=== PATIENT | male | born 1955 | race Caucasian/White ===

== ENCOUNTER 2017-08-28 16:41 | Emergency (ER) | payer OTHER ==
[2017-08-28] MEDS ORDERED: Lidocaine 2% EPI 1:200000 MPF* 20 ML VIAL ONE (17:09)
[2017-08-28] MEDS ORDERED: PROCHLORPERAZINE INJ 5 MG/ML 2 ML VIAL ONE (17:11)
[2017-08-28] MEDS ORDERED: HYDROmorphone INJ* 1 MG/ML CARPUJECT SYRINGE ONE (17:11)
[2017-08-28] MEDS ORDERED: HYDROmorphone INJ* 2 MG/ML CARPUJECT SYRINGE IV SLOW PU ONE (17:13)
[2017-08-28] MEDS ORDERED: PROCHLORPERAZINE INJ 5 MG/ML 2 ML VIAL IV ONE (17:16)
[2017-08-28] MEDS ORDERED: HYDROmorphone INJ* 1 MG/ML CARPUJECT SYRINGE IV SLOW PU ONE (17:17)
[2017-08-28] MEDS ORDERED: Tetan/Diph/Pertus SYR(Tdap)* 0.5 ML SYR(BOOSTRIX) use SYR IM ONE (17:22)
--- NOTE | 2017-08-28 18:05 | RAD ---
INDICATION: Intracranial Injury COMPARISON: None TECHNIQUE: Noncontrast axial source images were acquired from the skull base to the vertex. FINDINGS: Ventricles/sulci: The ventricles and cisterns are normal in size and configuration for age. Brain parenchyma: There is patchy areas of decreased attenuation in the periventricular and subcortical white matter consistent with chronic microvascular ischemia. There is no intracranial mass or mass effect. Intracranial hemorrhage:None. Extra-axial spaces: There are no abnormal extra axial fluid collections or evidence of extra-axial mass. Calvarium: There is no calvarial fracture or other calvarial abnormality. Scalp: There is no evidence of scalp or extracalvarial soft tissue abnormality. Paranasal sinuses/mastoid: The paranasal sinuses and mastoid air cells are clear. Other: None. IMPRESSION: CHRONIC MICROVASCULAR ISCHEMIC CHANGES. NO ACUTE FINDINGS.
--- NOTE | 2017-08-28 18:09 | RAD ---
INDICATION: Fall. Neck pain COMPARISON: None TECHNIQUE: Noncontrast axial source images was performed from the skull base to the thoracic inlet. Coronal and and sagittal reformatted images were generated. FINDINGS: Vertebrae: There is no fracture or acute focal bony lesion. There are postsurgical changes with anterior and posterior spinal fusion at C4-C6. There is no evidence of hardware failure. There is posterior spondylitic change with resultant decrease in AP diameter at the fused levels. This is most significant at C6 There is multilevel facet arthropathy most prominent above and below levels of fusion Alignment: The craniocervical junction appears normal. The cervical vertebrae are normally aligned. Central Canal: Decrease in AP diameter canal is noted above. Intervertebral disc spaces: The disc spaces are maintained. Brain: The visualized brain appears unremarkable. Soft tissues: The visualized soft tissue elements of the neck are unremarkable. The prevertebral soft tissues appear normal. The lung apices are clear. IMPRESSION: MULTILEVEL OSTEOARTHRITIC CHANGE. CERVICAL FUSION C4-C6. DECREASED AP DIAMETER OF THE CANAL AT THE FUSED LEVELS
--- NOTE | 2017-08-28 18:40 | ED ---
Marta Ward Gabriel, scribed for Devora Garrison MD on 08/28/17 at 1713 . Adult Trauma - HPI Summary HPI Summary: This patient is a 61 year old M BIBA from the residential to [facility] accompanied by correction officers s/p fall. Pt states he was coming out of the cell and the left leg gave out casing him to fall. He hit the back of his head. The patient rates the pain 10/10 in severity. Patient reports a laceration on the back of the head. Patient denies LOC and neck pain. Pt is on Plavix. - History of Current Complaint Chief Complaint: EDHeadInjury Stated Complaint: HEAD INJURY Time Seen by Provider: 08/28/17 17:04 Hx Obtained From: Patient Mechanism of Injury: Fall Ambulatory at the Scene: Yes Loss of Consciousness: no loss of consciousness Onset of Pain: Immediate Onset Severity: Severe Current Severity: Severe Pain Intensity: 10 Pain Scale Used: 0-10 Numeric Location: Head Associated Signs & Symptoms: Positive: Negative - loc and neck pain - Allergy/Home Medications Allergies/Adverse Reactions: Allergies Allergy/AdvReac Type Severity Reaction Status Date / Time No Known Allergies Allergy Verified 08/28/17 17:12 PMH/Surg Hx/FS Hx/Imm Hx Endocrine/Hematology History: Reports: Other Endocrine/Hematological Disorders - raynaud's disease Respiratory History: Denies: Hx Asthma, Hx Chronic Obstructive Pulmonary Disease (COPD) GI History: Denies: Hx Crohn's Disease, Hx Gall Bladder Disease History: Denies: Hx Acute Renal Failure, Hx Benign Prostatic Hyperplasia Infectious Disease History: No Infectious Disease History: Denies: Traveled Outside the [place] in Last 30 Days - Family History Known Family History: Negative: Respiratory Disease, Seizure Disorder - Social History Occupation: Unemployed Lives: [facility] - residential Alcohol Use: None Substance Use Type: Reports: None Smoking Status (MU): Never Smoked Tobacco Review of Systems Positive: Other - laceration on scalp Neurological: Negative - LOC All Other Systems Reviewed And Are Negative: Yes Physical Exam - Summary Physical Exam Summary: VITAL SIGNS: Reviewed. GENERAL: Patient is a well-developed and nourished male who is lying comfortable in the stretcher. Patient is not in any acute respiratory distress. HEAD AND FACE: there is a 4in laceration to the back of the head. EYES: PERRLA, EOMI x 2, No injected conjunctiva, no nystagmus. EARS: Hearing grossly intact. Ear canals and tympanic membranes are within normal limits. MOUTH: Oropharynx within normal limits. NECK: Supple, trachea is midline, no adenopathy, no JVD, no carotid bruit, no c- spine tenderness, neck with full ROM. CHEST: Symmetric, no tenderness at palpation LUNGS: Clear to auscultation bilaterally. No wheezing or crackles. CVS: Regular rate and rhythm, S1 and S2 present, no murmurs or gallops appreciated. ABDOMEN: Soft, non-tender. No signs of distention. No rebound no guarding, and no masses palpated. Bowel sounds are normal. EXTREMITIES: FROM in all major joints, no edema, no cyanosis or clubbing. NEURO: Alert and oriented x 3. No acute neurological deficits. Speech is normal and follows commands. SKIN: Dry and warm Triage Information Reviewed: Yes Vital Signs On Initial Exam: Initial Vitals Temp Pulse Resp BP Pulse Ox 97.9 F 62 16 130/97 99 08/28/17 16:50 08/28/17 16:50 08/28/17 16:50 08/28/17 16:50 08/28/17 16:50 Vital Signs Reviewed: Yes Procedures - Laceration/Wound Repair 1 Location: head Description: Irregular Anesthesia: 2.0%, Lido, Epi Length, Depth and Shape: 4 inches left vertix Irrigated w/ Saline (ccs): 500 Laceration/Wound Explored: clean, no foreign body removed Closure: [place] #__ - 25 Diagnostics - Vital Signs Vital Signs Temp Pulse Resp BP Pulse Ox 08/28/17 16:50 97.9 F 62 16 130/97 99 - Laboratory Lab Statement: Any lab studies that have been ordered have been reviewed, and results considered in the medical decision making process. - CT CT C-spine CT Interpretation Completed By: Radiologist - MULTILEVEL OSTEOARTHRITIC CHANGE. CERVICAL FUSION C4-C6. DECREASED AP DIAMETER OF THE CANAL AT THE FUSED LEVELS ED physician has reviewed this radiology report. CT brain CT Interpretation Completed By: Radiologist - CHRONIC MICROVASCULAR ISCHEMIC CHANGES. NO ACUTE FINDINGS. ED physician has reviewed this radiology report. Adult Trauma Course/Dx - Course Assessment/Plan: This patient is a 61 year old M BIBA from the residential to [facility] accompanied by correction officers s/p fall. Pt states he was coming out of the cell and the left leg gave out casing him to fall. He hit the back of his head. The patient rates the pain 10/10 in severity. Patient reports a laceration on the back of the head. Patient denies LOC and neck pain. Pt is on Plavix. CT C-spine reveals, per radiologist, MULTILEVEL OSTEOARTHRITIC CHANGE. CERVICAL FUSION C4-C6. DECREASED AP. DIAMETER OF THE CANAL AT THE FUSED LEVELS. CT brain reveals, per radiologist, CHRONIC MICROVASCULAR ISCHEMIC CHANGES. NO ACUTE FINDINGS. In the ED course the patient was given dilaudid, lidocaine, Compazine, and a tetanus booster. The patients laceration was repaired with no compliccations. Dx head injury and scalp laceration. Patient will be discharged and have his cindi removed in two weeks. The patient is agreeable with this plan. - Diagnoses Provider Diagnoses: Laceration of head, Scalp laceration Discharge - Discharge Plan Condition: Stable Disposition: HOME Patient Education Materials: Laceration (ED), Head Injury (ED) Referrals: [facility], [Primary Care Provider] - 2 Weeks Additional Instructions: Remove the cindi in two weeks. RETURN TO EMERGENCY DEPARTMENT FOR ANY NEW OR WORSENING SYMPTOMS The documentation as recorded by the Marta laery Gabriel accurately reflects the service I personally performed and the decisions made by me, Devora Garrison MD.
[2017-08-28 18:43] VITALS: BP 125/69
== END 2017-08-28 18:42 | disposition home or self-care (01) ==
LOC: ED 16:41
DX: S01.01XA Laceration without foreign body of scalp, initial encounter (principal); S01.91XA Laceration without foreign body of unspecified part of head, initial encounter; W19.XXXA Unspecified fall, initial encounter; Y92.9 Unspecified place or not applicable
CPT/HCPCS: 12001; 70450; 72125; 90715; 96374; 96375; 99282; J0780; J1170

== ENCOUNTER 2017-09-02 15:51 | Observation (INO) | payer OTHER ==
[2017-09-02] MEDS ORDERED: NS 0.9% 1000 ML* 1,000 ML IV ONE (16:38)
--- NOTE | 2017-09-02 17:01 | RAD ---
INDICATION: Fell 5 days ago intracranial injury. COMPARISON: CT brain August 28, 2017 TECHNIQUE: Noncontrast axial source images were acquired from the skull base to the vertex. FINDINGS: The images are suboptimal presumably related to a technical issue. The scan should be repeated. The patient is been called back for additional imaging. The submitted images show no gross abnormalities. IMPRESSION: Limited exam due to technical issues. The examination will be repeated.
--- NOTE | 2017-09-02 17:07 | RAD ---
INDICATION: Fall. Unspecified injuries. COMPARISON: None TECHNIQUE: Noncontrast axial source images were obtained from the hemidiaphragms to the symphysis pubis. This examination was ordered using a renal stone protocol which is performed without oral or intravenous contrast and therefore has inherent limitations when used to evaluate other intra-abdominal or intrapelvic pathology. Consider conventional contrast enhanced imaging if clinically . CHEST FINDINGS: Neck/thyroid: The visualized neck to include the thyroid appear normal. Chest wall: There are no acute abnormalities of the bony thorax or chest wall. There is spondylitic change of the thoracic spine with kyphosis There is no supraclavicular, infraclavicular, or axillary lymphadenopathy. Lungs : There are no worrisome pulmonary parenchymal masses or infiltrates. There are several tiny cuspid granulomas. The lungs are hyperinflated. There are no endobronchial lesions. Cardiomediastinal structures: The heart is normal in size. There is no pericardial effusion. There is no evidence of aortic aneurysm or dissection. There is a dual-chamber cardiac pacemaker. There are aortic intimal calcifications. The pulmonary vessels appear normal. There is no mediastinal or hilar adenopathy. 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 The esophagus appears normal. Pleura : There are no pleural-based masses or effusions. ABDOMINAL/PELVIC FINDINGS: Liver: No CT abnormalities the liver on noncontrast evaluation. Gallbladder: There are no calcified gallstones. There is no evidence of wall thickening or pericholecystic fluid. Spleen: The splenic abnormalities on noncontrast evaluation. Pancreas: Limited evaluation of pancreas due to lack of oral and intravenous contrast. No specific abnormalities are identified. Adrenal glands: There is no evidence of adrenal mass. Kidneys: Tiny nonobstructive right renal calculus. No hydronephrosis. No mass identified on noncontrast evaluation. Adenopathy: There is no evidence of adenopathy by size criteria. Evaluation is limited without oral contrast Fluid collections: There are no free or localized fluid collections. Vessels:There are atherosclerotic changes of the aorta. There is no focal aneurysm. The IVC is unremarkable GI tract: No gross abnormalities the GI tract. There is moderate stool in the rectal vault. No obstruction. Lack of oral contrast limits evaluation.. Pelvic organs: The prostate and seminal vesicles appear normal Bladder: There are no bladder masses. Abdominal and pelvic soft tissues: The extraperitoneal abdominal and pelvic soft tissues appear normal.. Osseous structures: Spondylitic change of the lumbar spine. Mild bilateral hip osteoarthritis. No acute bony findings. IMPRESSION: LIMITED NONCONTRAST IMAGING SHOWS NO ACUTE CT FINDINGS
[2017-09-02 17:56] LABS: Hematocrit 20 % (42-52); Hemoglobin 6.8 g/dl (14.0-18.0)
[2017-09-02] MEDS ORDERED: Acetaminophen TAB* 325 MG PO PRN (18:49)
[2017-09-02] MEDS ORDERED: Ondansetron INJ* 2 MG/ML VIAL IV PRN (18:49)
[2017-09-02] MEDS ORDERED: Sildenafil (NF) 25 MG TAB PO PRN (18:50)
--- NOTE | 2017-09-02 19:01 | ED ---
Yuriy Ward Jennifer, scribed for Sergio Joiner MD on 09/02/17 at 1620 . Head Injury - HPI Summary HPI Summary: The pt is a 61 y/o male who presents to the ED with bleeding from the head. Pt was in the ED five days ago and received sutures to his head. Every morning for the past five mornings, he has woken up with his pillows soaked with blood. The pt has lost a lot of blood in the past five days. Pt is accompanied by two correctional officers. - History Of Current Complaint Stated Complaint: ANEMIA Time Seen by Provider: 09/02/17 16:11 Hx Obtained From: Patient Mechanism Of Injury: Other - Faulty sutures Onset/Duration: Started Days Ago - five Severity Currently: None Pain Scale Used: 0-10 Numeric Character: Other: - Bleeding from suture site Associated Signs And Symptoms: Other: - Anemia - Allergies/Home Medications Allergies/Adverse Reactions: Allergies Allergy/AdvReac Type Severity Reaction Status Date / Time No Known Allergies Allergy Verified 08/28/17 17:12 Home Medications: Home Medications Acetaminophen TAB* [Tylenol TAB*] 650 mg PO TID PRN 09/02/17 [History Confirmed 09/02/17] Amitriptyline TAB* [Elavil TAB*] 25 mg PO QPM 09/02/17 [History Confirmed ] Carvedilol TAB* [Coreg TAB*] 12.5 mg PO BID 09/02/17 [History Confirmed 09/02/17 ] Clopidogrel TAB* [Plavix TAB*] 75 mg PO DAILY 09/02/17 [History Confirmed ] Digoxin TAB* [Lanoxin TAB*] 0.125 mg PO DAILY 09/02/17 [History Confirmed ] Furosemide TAB* [Lasix TAB*] 20 mg PO DAILY 09/02/17 [History Confirmed 09/02/17 ] Levothyroxine TAB* [Synthroid TAB*] 88 mcg PO DAILY 09/02/17 [History Confirmed 09/02/17] Lisinopril TAB* [Prinivil TAB*] 10 mg PO DAILY 09/02/17 [History Confirmed 09/02] Minerin Cream* [Eucerin Cream*] 1 applic TOPICAL DAILY PRN 09/02/17 [History Confirmed 09/02/17] Pravastatin (NF) [Pravachol (NF)] 40 mg PO QPM 09/02/17 [History Confirmed 09/02] Ranitidine TAB (NF) [Zantac TAB (NF)] 300 mg PO BEDTIME 09/02/17 [History Confirmed 09/02/17] Sildenafil (NF) [Viagra (NF)] 20 mg PO TID PRN 09/02/17 [History Confirmed 09/02] Spironolactone TAB* [Aldactone TAB 25 MG*] 25 mg PO DAILY 09/02/17 [History Confirmed 09/02/17] PMH/Surg Hx/FS Hx/Imm Hx Endocrine/Hematology History: Reports: Hx Anemia, Other Endocrine/Hematological Disorders - raynaud's disease Respiratory History: Denies: Hx Asthma, Hx Chronic Obstructive Pulmonary Disease (COPD) GI History: Denies: Hx Crohn's Disease, Hx Gall Bladder Disease History: Denies: Hx Acute Renal Failure, Hx Benign Prostatic Hyperplasia Musculoskeletal History: Reports: Other Musculoskeletal History - Scleroderma, Raynaud's - Family History Known Family History: Negative: Respiratory Disease, Seizure Disorder - Social History Alcohol Use: None Substance Use Type: Reports: None Smoking Status (MU): Never Smoked Tobacco Review of Systems Negative: Chills Positive: Other - Bleeding from suture wound on head All Other Systems Reviewed And Are Negative: Yes Physical Exam - Summary Physical Exam Summary: Appearance: The patient is well-nourished in no acute distress and in no acute pain. Skin: The skin is warm and dry and skin color reflects adequate perfusion. HEENT: ~The head is normocephalic and atraumatic. The pupils are equal and reactive. The conjunctivae are pale and without drainage. ~Nares are patent and without drainage. ~Mouth reveals moist mucous membranes and the throat is without erythema and exudate. ~The external ears are intact. The ear canals are patent and without drainage. The tympanic membranes are intact. Neck: the neck is supple with full range of motion and non-tender. There are no carotid bruits. ~There is no neck vein distension. Respiratory: Chest is non-tender. ~Lungs are clear to auscultation and breath sounds are symmetrical and equal. Cardiovascular: Heart is regular rate and rhythm. ~There is no murmur or rub auscultated. ~~There is no peripheral edema and pulses are symmetrical and equal. Abdomen: The abdomen is soft and non-tender. ~There are normal bowel sounds heard in all four quadrants and there is no organomegaly palpated. Musculoskeletal: There is no back tenderness noted. ~Extremities are non-tender with full range of motion. ~There is good capillary refill. ~There is no peripheral edema or calf tenderness elicited. Neurological: Patient is alert and oriented to person, place and time. ~The patient has symmetrical motor strength in all four extremities. ~Cranial nerves are grossly intact. Deep tendon reflexes are symmetrical and equal in all four extremities. Psychiatric: The patient has an appropriate affect and does not exhibit any anxiety or depression. Triage Information Reviewed: Yes Vital Signs On Initial Exam: Initial Vitals Temp Pulse Resp BP Pulse Ox 97.7 F 59 20 109/54 97 09/02/17 16:16 09/02/17 16:16 09/02/17 16:16 09/02/17 16:16 09/02/17 16:16 Vital Signs Reviewed: Yes Diagnostics - Vital Signs Vital Signs Temp Pulse Resp BP Pulse Ox 09/02/17 16:16 97.7 F 59 20 109/54 97 - Laboratory Lab Results: Lab Results 09/02/17 09/02/17 Range/Units 17:40 17:40 Hgb 6.8 L (14.0-18.0) g/dl Hct 20 L (42-52) % Blood Type A Positive Antibody Screen Negative Crossmatch See Detail Result Diagrams: 09/02/17 17:40 Lab Statement: Any lab studies that have been ordered have been reviewed, and results considered in the medical decision making process. - CT Brain CT CT Interpretation: No Acute Changes - Limited exam due to technical issues. The examination will be repeated. Dr. Joiner has reviewed this report. CT Interpretation Completed By: Radiologist Chest/Abd/Pel CT CT Interpretation: No Acute Changes - LIMITED NONCONTRAST IMAGING SHOWS NO ACUTE CT FINDINGS. Dr. Joiner has reviewed this report. [address] Interpretation Completed By: Radiologist Head Injury Course/Dx Course Of Treatment: Mr. Lee returned to the ED with the unusual story that he has had continued bleeding from the scalp lac that was stapled here last Thursday. Now he is getting dizzy when he stands and was orthostatic at [place]. His blood was sent and he was found to have a new severe anemia. The hospitalist service was contacted for admission for transfusion and they requested some scans to look for another source of blood loss. - Diagnoses Provider Diagnoses: Severe anemia Discharge - Discharge Plan Condition: Good Disposition: ADMITTED TO [facility] Referrals: [place] [facility], [Primary Care Provider] - The documentation as recorded by the Yuriy leary Jennifer accurately reflects the service I personally performed and the decisions made by me, Sergio Joiner MD.
[2017-09-02] MEDS ORDERED: Famotidine TAB* 20 MG PO SCH (21:00)
--- NOTE | 2017-09-03 02:23 | HP ---
CC: [facility] * HISTORY AND PHYSICAL: DATE OF ADMISSION: 09/02/17 PRIMARY CARE PROVIDER: [facility]. MY ATTENDING WHILE IN THE HOSPITAL: Dr. Corby Cooper.* (DICTATED BY MISTY GORE) CHIEF COMPLAINT: Dizziness on standing for 6 days. HISTORY OF PRESENT ILLNESS: Mr. Lee is an inmate at [facility] with past medical history significant for MT, status post stenting x3, greater than 1 year ago with ischemic cardiomyopathy, ICD placement ; hypertension; hypothyroidism; scleroderma; multiple sclerosis, who presents with dizziness on standing for 6 days after he was seen at this facility on with a head laceration which patient claims is from slipping when he got out of his cell block. The patient states that he falls frequently due to weakness in his right leg from lumbar disk disease. The patient states that on the day after he was seen in the emergency department, his pillow was saturated with blood. They stopped all his blood thinners at that point including Trental and Plavix, but he continued to have significant bleeding from his head for several days, which significantly decreased in quantity on the day of examination, was no longer present, the patient states that he, since Thursday, , has been having. The patient denies palpitations, chest pain, or shortness of breath along with this. The patient's only other complaint is an increase in his Raynaud's phenomenon with his fingers being white for several days without ulceration or pain. The patient states, however, that his Raynaud' s is generally under control. The patient has, for a couple of days, had runny nose and sore throat without difficulty breathing, had never been on oxygen. The patient states that he has known history of anemia. The patient's scleroderma does not have known kidney or lung complications. The patient has ICD placed last September for sick sinus syndrome. The patient has not passed out. The patient is feeling better in the emergency department after getting 1 L of fluid. The patient had labs drawn earlier today at [facility] to evaluate his anemia, the only abnormalities from which were elevated haptoglobin and elevated homocysteine. The patient had a hemoglobin of 6.8 in the emergency department. He is symptomatic and has coronary artery disease, so we were asked to evaluate for admission. The patient has lost 21 pounds over the course of incarceration to this point due to poor lack of nutritional choices according to him. PAST MEDICAL HISTORY: Ischemic cardiomyopathy, unknown EF, ICD implantation; scleroderma; myocardial infarction; hypertension; stent x3; coronary artery disease; hypothyroidism; multiple sclerosis on MRI of head. PAST SURGICAL HISTORY: Cervical fusion surgery, ICD implantation. MEDICATIONS: On admission: 1. Carvedilol 12.5 mg b.i.d. 2. Tylenol 650 mg p.o. t.i.d. as needed. 3. Eucerin cream 1 application topical daily as needed. 4. Spironolactone 25 mg p.o. daily. 5. Amitriptyline 25 mg p.o. q.p.m. 6. Furosemide 20 mg p.o. daily. 7. Digoxin 0.125 mg p.o. daily. 8. Clopidogrel 75 mg p.o. daily. 9. Pravastatin 40 mg p.o. q.p.m. 10. Lisinopril 10 mg p.o. daily. 11. Levothyroxine 88 mcg p.o. daily. 12. Zantac 300 mg p.o. at bedtime. 13. Sildenafil 20 mg p.o. t.i.d. as needed for vasospasm. The patient was previously on Trental; however, this was held last Thursday as well as the carvedilol and the clopidogrel. FAMILY HISTORY: The patient's mother of MT at 78. The patient's father of acute blood loss anemia secondary to a fall post orthopedic surgery. The patient has a strong family history of coronary artery disease. SOCIAL HISTORY: The patient has never smoked, drank occasional alcohol before being incarcerated. Denies any illicit drug use. 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 The patient is and has no children. REVIEW OF SYSTEMS: A 14-point review of systems was reviewed and is negative except as above. PHYSICAL EXAMINATION GENERAL: The patient is a 61-year-old male, who appears stated age and sitting comfortably in the bed, no acute distress. The patient has visible dried blood on his hair on the left side of head. VITAL SIGNS: In the emergency department, temperature 97.7, pulse rate 59, respiratory rate 20, oxygen saturation 97% on room air, blood pressure 109/54. HEENT: Head: Normocephalic. There is approximately a 10-cm long laceration on the scalp with cindi with no signs of dehiscence. There is significant amount of dried blood on the patient's hair. No other trauma, ecchymosis, or signs of discharge or erythema. Sclerae anicteric. No conjunctival injection. Nasal mucosa moist. Oral mucosa moist. Mucosa pale. No pharyngeal erythema , discharge, or exudate. NECK: Supple, nontender. No lymphadenopathy. No carotid bruit auscultated. RESPIRATORY: Clear to auscultation bilaterally. No wheezes, rales, or rhonchi. Good air exchange bilaterally. CARDIAC: Bradycardic. No clicks, murmurs, gallops, or rubs. Pulses 2+ in bilateral dorsalis pedis, posterior tibialis, and radial areas. No lower extremity edema noted. Venous stasis changes present in legs bilaterally. ABDOMEN: Soft, nontender, nondistended. Bowel sounds present. Normoactive in all 4 quadrants. No hepatosplenomegaly. No abdominal bruit auscultated. NEURO: Cranial nerves II through XII intact. Alert and oriented x3. No focal deficits. PSYCHIATRIC: Pleasant and cooperative. SKIN: Clean, dry, and intact except for above-noted rashes. Nails are atrophic. Fingertips show classic signs of skin tightening. DIAGNOSTIC STUDIES/LAB DATA: Hemoglobin 6.8, hematocrit 20. Sodium 137, potassium 4.8, chloride 101, carbon dioxide 28, anion gap 7, BUN 21, creatinine 1.46, glucose 95, calcium 9.7. Iron 51, TIBC 322, percent saturation 16%, ferritin 197. Bilirubin 0.3, AST 18, ALT 11, alkaline phosphatase 64. Protein 6.8, albumin 3.9, globulin 2.9. Digoxin level 1.1. Abdomen and pelvis CT read as limited, noncontrast study shows no acute CT findings. Brain CT from 09/02/17 read as negative examination. Electrocardiogram read as: S1, S2 present. No other atrial paced complexes, no other abnormalities. Left bundle branch block pattern. QTc 419. ASSESSMENT AND PLAN: Impression: The patient is a 61-year-old male with past medical history significant for coronary artery disease with ischemic cardiomyopathy status post myocardial infarction and stenting x3, scleroderma and multiple sclerosis, who presents with acute blood loss anemia from a scalp wound. The patient had a rather significant anemic workup including ferritin, iron, folate, B12, reticulocyte count, and haptoglobin, who will be admitted for transfusion and continuation of his anemia workup. 1. Acute blood loss anemia: The patient has acute blood loss anemia. He has had a major trauma while on 2 antiplatelet agents. These were stopped and the patient's bleeding has stopped; however, he has significant anemia, we will transfuse the patient 2 units at this time, recheck CBC. We will obtain orthostatic vital signs, which were abnormal [facility] the jail. Due to the patient' s scleroderma, we will add on a Ct test. The patient does not appear to be hemolyzing, which is a concern with his scleroderma. The patient has an elevated reticulocyte count but not proportional to the degree of anemia, this may be due to the acute nature of anemia and the patient will have increased reticulocyte count appropriately later; however, the patient does have elevated creatinine at this time, which could be related to chronic kidney disease associated with his scleroderma, to which we have no baseline. We will check an erythropoietin level and the risks and benefits of transfusions were explained to the patient and he is in agreement to go forward with this. We will monitor the patient for fluid overload and repeat echo and perform echocardiogram as the patient's ejection fraction is unknown. 2. Ischemic cardiomyopathy: We will assess the patient's echocardiogram. We will continue the patient's pravastatin, hold Coreg due to orthostasis, hold clopidogrel. EKG read as above showing no signs of ischemia. The patient has no heart disease. 3. Hypertension: The patient is normotensive. Hold patient's antihypertensives including spironolactone, furosemide, lisinopril, and carvedilol. We will resume these as tolerated. 4. Chronic kidney disease: Unknown chronicity. The patient has elevated creatinine, this could represent chronic kidney disease due to anemia, chronic kidney disease due to hypertension, or chronic kidney disease related to scleroderma. There are no records to compare this to. We will reassess after transfusion. Erythropoietin level pending. 5. Hypothyroidism: Continue levothyroxine. 6. Scleroderma: Hold clopidogrel, Trental. Continue Viagra as needed. The patient is on no disease-modifying therapy. 7. Multiple sclerosis: The patient has no neurological deficits at this time to exam. The patient is on no disease-modifying therapy. Follow up outpatient. 8. DVT prophylaxis: Will be held due to anemia. The patient is high risk. The patient will be put on SCDs. 9. FEN: The patient will be transfused. The patient will have a heart- healthy diet without caffeine. 10. Code status: The patient would like to be full code. Surrogate decision maker would be his sister, Janneth Thacker; however, his surrogate decision maker will likely be [facility] if he were unable to make decisions himself. 11. Disposition: The patient is admitted to observation. TIME SPENT: Approximately 60 minutes was spent on this admission, 30 of which was spent [id number] with the patient obtaining history and physical and discussing treatment plan. This plan has been discussed with my attending, Dr. Corby Cooper, and he is in agreement. MISTY GORE [id number]/[facility] #: [id number] RAQUEL
[2017-09-03] MEDS ORDERED: Levothyroxine TAB* 88 MCG TAB PO SCH (06:00)
[2017-09-03 06:28] LABS: ABS Basophils 0 10^3/ul (0-0.2); ABS Eosinophils 0.1 10^3/ul (0-0.6); ABS Lymphocytes 0.8 10^3/ul (1.0-4.8); ABS Monocytes 0.5 10^3/ul (0-0.8); ABS Nucleated RBC 0 10^3/ul; Eosinophil % 1.2 % (0-6); Hematocrit 25 % (42-52); Hemoglobin 8.9 g/dl (14.0-18.0); Lymphocyte % 17.7 % (25-47); Mean Corpuscular HGB Conc 35 g/dl (31-36); Mean Corpuscular Hemoglobin 30 pg (27-31); Mean Corpuscular Volume 85 fL (80-94); Mean Platelet Volume 8 um3 (7.4-10.4); Nucleated Red Blood Cells % 0.1; Platelet Count 147 10^3/ul (150-450); Red Blood Count 2.96 10^6/ul (4.0-5.4); Red Cell Distribution Width 17 % (10.5-15); White Blood Count 4.3 10^3/ul (3.5-10.8)
[2017-09-03 06:39] LABS: EGFR Non-African American 58.9 (>60)
[2017-09-03] MEDS ORDERED: Digoxin TAB* 0.125 MG PO SCH (09:00)
[2017-09-03 11:22] LABS: INR 0.94 (0.77-1.02)
--- NOTE | 2017-09-03 12:12 | ECHO ---
Patient: VI MADSEN [id number] [facility] Rec#: [id number] : 1955 Date: 09/03/2017 Age: 61y Height: 182.88 cm / 72.0 in Weight: 71.21 kg / 156.9 lbs Sex: M BSA: 1.92 Room#: 422 Admit Date#: 09/02/2017 Type: Inpatient Referring: Jr Huerta Reading: Cam Khan MD [employer] Sawyer: Kelly MarianoRD,RDMS Transthoracic Echocardiogram Indication: Cardiomyopathy, Anemia BP: 115/49 HR: 67 Rhythm: NSR Findings History: CAD, NV, PCI, ischemic cardiomyopathy, ICD, HTN Technical Comments: The study quality is good. Left Ventricle: The left ventricular size is mild to moderately dilated. Mild concentric left ventricular hypertrophy is observed. There are multiple regional wall motion abnormalities. The inferior wall appears akinetic, extending to the apex. The proximal inferior septal area is akinetic in 4 chamber view. There is otherwise mild global hypokinesis. The estimated ejection fraction is 40-45%. Visually estimated LVEF is 40%. Abnormal left ventricular diastolic function is observed. Left Atrium: The left atrium is mild to moderately dilated. Right Ventricle: The right ventricular chamber size and systolic function are within normal limits. A pacemaker wire is visualized in the right ventricle. Right Atrium: The right atrial cavity size is normal. A pacemaker wire is visualized in the right atrium. Aortic Valve: The aortic valve is trileaflet. The aortic valve leaflets are mildly thickened. Systolic excursion of the aortic valve is normal. There is trace to mild aortic regurgitation. There is no evidence of aortic stenosis. Mitral Valve: The mitral valve leaflets are mildly thickened. There is mild mitral regurgitation. There is no evidence of mitral stenosis. Tricuspid Valve: The tricuspid valve leaflets are normal. There is trace tricuspid regurgitation. Unable to estimate the right ventricular systolic pressure. Pulmonic Valve: The pulmonic valve appears normal. There is mild to moderate pulmonic regurgitation. Pericardium: There is no significant pericardial effusion. Aorta: The aortic root appears normal. There is no dilatation of the aortic arch. Pulmonary Artery: The main pulmonary artery is not well visualized. Venous: The inferior vena cava appears normal in size. There is a greater than 50% respiratory change in the inferior vena cava dimension. Conclusions Mild concentric left ventricular hypertrophy is observed. There are multiple regional wall motion abnormalities. The inferior wall appears akinetic, extending to the apex. The proximal inferior septal area is akinetic in 4 chamber view. There is otherwise mild global hypokinesis. Visually estimated LVEF is 40%. Abnormal left ventricular diastolic function is observed. The left atrium is mild to moderately dilated. There is trace to mild aortic regurgitation. The mitral valve chordae show increased mobility with mild thickening. There is mild mitral regurgitation. There is trace tricuspid regurgitation. There is mild to moderate pulmonic regurgitation. No reports of prior studies are offered for comparison. Measurements Name Value Normal Range RVIDd (AP) 2D 3.2 cm (0.9 - 2.6) RVDdMajor (2D) 3.5 cm (2.2 - 4.4) RAd ISD 4CH 4.7 cm (3.4 - 4.9) RA (A4C)W 3.6 cm (2.9 - 4.6) IVSd (2D) 1.3 cm (0.6 - 1) LVPWd (2D) 1.3 cm (0.6 - 1) LVIDd (2D) 6 cm (3.6 - 5.4) LVIDs (2D) 4.6 cm - LV FS (2D) 23 % (25 - 45) Aortic Annulus 2.4 cm (1.4 - 2.6) Ao root diameter (2D) 3.3 cm (2.1 - 3.5) Ascending Ao 3.3 cm (2.1 - 3.4) Aortic arch 3.3 cm (1.8 - 3.4) LA dimension (AP) 2D 3.9 cm (2.3 - 3.8) LAd ISD 4CH 5.5 cm (2.9 - 5.3) LA ISD 4CH W 4.1 cm (2.5 - 4.5) Name Value Normal Range LA ESV SP 4CH (A/L) 53.23 ml - LA ESV SP 2CH (A/L) 94.67 ml - LA ESV BP (A/L) 78.17 ml - LA ESV BP (A/L) index 41 ml/m2 - LA ESV SP 4CH (MOD) 49.07 ml - LA ESV SP 2CH (MOD) 90.8 ml - Name Value Normal Range MV E-wave Vmax 0.8 m/sec - MV deceleration time 182 msec - MV A-wave Vmax 0.7 m/sec - MV E:A ratio 1.2 ratio - P. vein S-wave Vmax 0.4 m/sec - P. vein D-wave Vmax 0.5 m/sec - P. vein S:D Vmax ratio 0.8 ratio - P. vein A-wave duration 111 msec - LV lateral e' Vmax 0.13 m/sec - LV E:e' lateral ratio 6.2 ratio - Name Value Normal Range AV Vmax 1.5 m/sec - AV VTI 32.5 cm - AV peak gradient 9 mmHg - AV mean gradient 4.5 mmHg - LVOT Vmax 1.1 m/sec - LVOT VTI 24.4 cm - LVOT peak gradient 5 mmHg - LVOT mean gradient 2.6 mmHg - ADINA Vmax 0.6 m/sec - Name Value Normal Range RAP 8 mmHg - IVC diameter 2.1 cm - Name Value Normal Range PV Vmax 0.9 m/sec - PV peak gradient 3.2 mmHg -
[2017-09-03] MEDS ORDERED: Atorvastatin* 10 MG TAB PO SCH (18:00)
[2017-09-03] MEDS ORDERED: Amitriptyline TAB* 25 MG PO SCH (18:00)
[2017-09-03 18:17] VITALS: BP 138/56
--- NOTE | 2017-09-04 11:16 | DS ---
CC: [facility]. DISCHARGE SUMMARY: DATE OF ADMISSION: 09/02/17. DATE OF DISCHARGE: 09/03/17. PRIMARY CARE PROVIDER: Physician from [facility]. DISCHARGE DIAGNOSES: 1. Anemia, acute hemorrhage from scalp laceration. 2. Kidney insufficiency with unknown baseline. SECONDARY DIAGNOSES: 1. History of ischemic cardiomyopathy with EF documented during this hospital stay at 40%. 2. Status post ICD implantation. 3. History of scleroderma. 4. History of myocardial infarction. 5. Hypertension. 6. History of coronary artery stenting x3. 7. History of hypothyroidism. 8. History of multiple sclerosis. 9. History of C-spine fusion surgery. MEDICATIONS AT DISCHARGE: Include: 1. Acetaminophen on p.r.n. basis. 2. Elavil 25 mg daily. 3. Coreg 12.5 mg b.i.d. 4. Plavix 75 mg daily. 5. Digoxin 0.125 mg daily. 6. Ferrous sulfate 325 mg daily. 7. Lasix 20 mg daily to be started on 09/05/17. 8. Levothyroxine 88 mcg daily. 9. Lisinopril 10 mg daily. 10. Eucerin cream one application topically daily to affected areas. 11. Pravachol 40 mg daily. 12. Ranitidine 300 mg at bedtime. 13. Viagra on a p.r.n. basis. LABORATORY DATA AND STUDIES PERFORMED DURING THE HOSPITAL STAY: Included: On 09/03/17, white blood cell count of 4.3, hemoglobin 8.9, hematocrit of 25, and platelets of 147. INR was 0.94 and PTT of 27.5. Sodium of 136, potassium 4.3, chloride 104, carbon dioxide 27, BUN 21, creatinine was 1.25. Digoxin level was 1.1. A transthoracic echocardiogram was obtained on 09/03/17 showed EF of 40% with multiple regional wall motion abnormalities, mild concentric LVH, mild mitral regurgitation, trace tricuspid regurgitation a nd moderate pulmonary hypertension. CT of the abdomen and pelvis performed on 09/02/17 to rule out hematoma, impression: "Limited, non-c ontrast imaging, showed no acute CT findings." Brain CT. Impression: "Negative evaluation." Stool occult was negative for blood. HOSPITALIZATION COURSE: Mr. Sergio Lee is a 61-year-old male prisoner with a history of scle roderma status post ICD placement with ischemic cardiomyopathy, who had a scalp laceration, stapled a t our hospital during an ER visit on 08/28/17. On 09/02/17, he presented to the hospital complaining of orthostasis and he was noted to be orthostatic and anemic with a hemoglobin of 7.7. Apparently, h e has been oozing from his incision site and his Plavix was held prior to his arrival to the emergenc y department the second time around. The patient was admitted for overnight observation and transfus ed 2 units of packed red blood cells. Stool guaiac was checked as well as CT of chest, abdomen and p sandra to rule out any other injuries that could result in anemia and were negative. The patient's orthostatic vitals were negative for orthostasis on 09/03/17. At this point, the recom mendation is to hold the patient's Aldactone for the time being, restart Lasix in a couple of days an d restart Plavix tomorrow. The patient's scalp had not been bleeding for the past 24 hours and the i ncision is stapled well with no evidence of wound dehiscence. He was placed on ferrous sulfate at 32 5 mg p.o. daily for iron supplement for his anemia. The patient's creatinine on arrival was 1.4 with unknown baseline. His creatinine at discharge after the blood transfusion was 1.2. At discharge, the patient was recommended to have CBC and basic metabolic panel drawn in approximate y one week. The patient is to see his primary care provider at [facility] within the next week. PHYSICAL EXAMINATION: At the time of discharge, blood pressure 115/66, heart rate of 68 and regular, respiratory rate 16, oxygen saturation 95% on room air, and temperature 98.2. General: The patient is a very pleasant 61-year-old male, who is in no acute distress. Alert, awake, and oriented x3, ve ry poor historian. HEENT: Head atraumatic and normocephalic. Eyes: Pupils are equal, round, and re active to light and accommodation. Pharynx clear, mucosa moist. Neck: Supple. No JVD. No bruits b ilaterally. Cardiovascular: Regular rate and rhythm. No murmur. Respiratory: Clear to auscultati on bilaterally. Abdomen is soft and nontender. Bowel sounds present in all 4 quadrants. Extremitie s: There is no edema. Pulses are +2 bilaterally. No clubbing or cyanosis. On neuro evaluation, speech is clear. Cranial nerves II through XII grossly intact. Motor strength is 5/5 bilaterally. On evaluation of the skin, the patient has a scalp laceration of approximately 10 cm overlying the le ft parietal region with no evidence of dehiscence, is stapled well, and no evidence of infection eith er. Please note that this is a short summary of the patient's hospitalization, please refer to further [place] dical records for details. TIME SPENT: Approximately 35 minutes were spent on the patient's discharge. [id number]/[facility] #: [id number]
== END 2017-09-03 19:15 ==
LOC: ED 15:51 → EEVIPCON 18:47 → MED 18:47
PROVIDERS: ADMIT Internal Medicine; ATTEND Internal Medicine
DX: D62 Acute posthemorrhagic anemia (principal); N28.9 Disorder of kidney and ureter, unspecified; I25.2 Old myocardial infarction; Y92.149 Unspecified place in prison as the place of occurrence of the external cause; S01.01XA Laceration without foreign body of scalp, initial encounter; X58.XXXA Exposure to other specified factors, initial encounter; Z95.810 Presence of automatic (implantable) cardiac defibrillator; Z95.5 Presence of coronary angioplasty implant and graft; Z86.39 Personal history of other endocrine, nutritional and metabolic disease
CPT/HCPCS: 36415; 70450; 71250; 74176; 80048; 80162; 82272; 82668; 85014; 85018; 85025; 85610; 85730; 86850; 86880; 86900; 86901; 86922; 93005; 93306; 99283; A9270-GY; G0378; P9040